=== PATIENT | female | born 1995 | race Native Hawaiian/Other Pacific Islander ===

== ENCOUNTER 2017-05-11 01:47 | Inpatient (IN) | payer MEDICAID ==
[2017-05-11] MEDS ORDERED: MAGNESIUM SULFATE 4GM/100ML 4 GM/100 ML BAG IV ONE ×2 (02:22→02:24)
[2017-05-11] MEDS ORDERED: LACTATED RINGERS 500 ML IV ONE (02:22)
[2017-05-11 02:50] LABS: Bilirubin,Urine NEG (Negative); Blood,Urine SM (Negative); Ketones,Urine NEG (Negative); Leukocyte Esterase,Urine NEG (Negative); Mucus,Urine FEW /HPF; Nitrite,Urine NEG (Negative); Protein,Urine <15 mg/dL mg/dL (Negative); Urobilinogen,Urine < 2.0 mg/dL (<2.0)
[2017-05-11] MEDS ORDERED: MAGNESIUM SULFATE 40GM/1000ML 40 GM/1,000 ML BAG IV SCH (03:00)
[2017-05-11] MEDS ORDERED: CELESTONE SOLUSPAN IM SCH (03:00)
[2017-05-11 03:23] LABS: Basophils % (Auto) 0.4 % (0.0-1.8); Eosinophils % (Auto) 0.8 % (0.0-4.3); Hematocrit 36.8 % (30.3-42.9); Hemoglobin 12.5 gm/dl (10.1-14.3); Mean Corpuscular HGB Conc 34 % (30-34); Mean Corpuscular Hemoglobin 32 pg (28-32); Mean Corpuscular Volume 93 fl (79-97); Platelet Count 164 K/mm3 (140-440); Red Blood Count 3.98 M/mm3 (3.65-5.03); Red Cell Distribution Width 13.1 % (13.2-15.2); White Blood Count 14.5 K/mm3 (4.5-11.0)
[2017-05-11] MEDS ORDERED: NARCAN 2 MG/2 ML IV PRN (03:53)
[2017-05-11] MEDS ORDERED: ePHEDrine SULFATE IV PRN ×2 (03:53→05:23)
--- NOTE | 2017-05-11 03:53 | Anesthesia Consultation ---
Anesthesia Consult and Med Hx Date of service: 05/11/17 - Airway Anesthetic Teeth Evaluation: Good ROM Head & Neck: Adequate Mental/Hyoid Distance: Adequate Mallampati Class: Class II Intubation Access Assessment: Good - Pulmonary Exam CTA: Yes - Cardiac Exam Cardiac Exam: No Murmur - Pre-Operative Health Status ASA Pre-Surgery Classification: ASA2 Proposed Anesthetic Plan: Epidural - Pulmonary Hx Asthma: No COPD: No Hx Pneumonia: No - Cardiovascular System Hx Hypertension: No - Central Nervous System Hx Seizures: No Hx Psychiatric Problems: No - Endocrine Hx Renal Disease: No Hx End Stage Renal Disease: No Hx Hypothyroidism: No Hx Hyperthyroidism: No - Hematic Hx Anemia: No Hx Sickle Cell Disease: No - Other Systems Hx Alcohol Use: No
[2017-05-11] MEDS ORDERED: fentaNYL-BUPIV 2 MCG/ML-0.125% 200 MCG/100 ML BAG EPIDURAL SCH (04:00)
[2017-05-11] MEDS ORDERED: POLYCILLIN/NS 2 GM/100 ML 2 GM/100 ML BAG IV ONE ×2 (04:21→05:23)
[2017-05-11] MEDS ORDERED: PITOCin/NS 20 UNIT/1000ML DRIP 20,000 MILLIUNITS/1,000 ML BAG IV ONE (04:35)
[2017-05-11] MEDS ORDERED: BRETHINE SUB-Q PRN (05:23)
[2017-05-11] MEDS ORDERED: BRETHINE IVP PRN (05:23)
[2017-05-11] MEDS ORDERED: STADOL IV PRN (05:23)
[2017-05-11] MEDS ORDERED: XYLOCAINE 2% INFILTRATI ONE ×2 (05:23→14:40)
[2017-05-11] MEDS ORDERED: SUBLIMAZE IV PRN (05:23)
[2017-05-11] MEDS ORDERED: MINERAL OIL PO PRN (05:23)
[2017-05-11] MEDS ORDERED: ZOFRAN IV PRN (05:23)
--- NOTE | 2017-05-11 05:31 | History and Physical Report ---
History of Present Illness Date of examination: 05/11/17 Date of admission: 05/11/17 02:28 Chief complaint: Labor History of present illness: Pt is a 21yo HF EDC 1017/17; EGA 30 3/7 weeks presents to L&D complaining of RUC's q 3-4 mins. [facility] however records are not available. Ob u/s done showed IUP @ 39 2/7 weeks; EFW 3741gms with ZOE 21.6 Past History Past Medical History: no pertinent history Past Surgical History: section Social history: no significant social history - Obstetrical History Expected Date of Delivery: 07/17/17 Actual Gestation: 30 Week(s) 3 Day(s) : 3 Medications and Allergies Allergies Allergy/AdvReac Type Severity Reaction Status Date / Time No Known Allergies Allergy Verified 08/26/15 20:30 Home Medications Medication Instructions Recorded Confirmed Last Taken Type Acetaminophen/Codeine [Tylenol #3] 1 tab PO Q6H PRN #10 tab 12/31/14 Unknown Rx Nitrofurantoin Grand/M-Cryst 100 mg PO Q12HR #14 capsule 12/31/14 Unknown Rx [Macrobid] Ondansetron [Zofran Odt] 4 mg PO Q6H #20 tab.rapdis 12/31/14 Unknown Rx Pnv95/Ferrous Fumarate/FA 1 each PO QDAY #30 tablet 12/31/14 Unknown Rx [ Vitamins] Docusate Sodium [Colace CAP] 100 mg PO BID #60 capsule 08/27/15 Unknown Rx Ibuprofen [Motrin 800 MG tab] 800 mg PO Q8HR PRN #90 tablet 08/27/15 Unknown Rx oxyCODONE /ACETAMINOPHEN [Percocet 1 tab PO Q6HR PRN #30 tablet 08/27/15 Unknown Rx 5/325 mg] Active Meds: Active Medications Betamethasone Acet/Betameth SodPhos (Celestone Soluspan) 12 mg IM Q24H DAYRON Stop: 05/12/17 03:01 Last Admin: 05/11/17 02:43 Dose: 12 mg Magnesium Sulfate (Magnesium Sulfate 40gm/1000ml) 40 gm in 1,000 mls @ 50 mls/ hr IV DIRECT DAYRON PRN Reason: 2 GM/HR Fentanyl/Bupivacaine/Sodium Chlor (Fentanyl-Bupiv 2 Mcg/Ml-0.125%) 200 mcg in 100 mls @ 12 mls/hr EPIDURAL TITR DAYRON PRN Reason: Protocol Multivitamins/Iron/Calcium ( Vitamin) 1 each PO QDAY DAYRON Review of Systems All systems: negative - Vital Signs Vital signs: Vital Signs Pulse BP 88 136/81 05/11/17 02:03 05/11/17 02:03 Temp Pulse Resp BP Pulse Ox 72 105/57 94 05/11/17 05:24 05/11/17 05:21 05/11/17 05:24 - Physical Exam Breasts: Positive: deferred Cardiovascular: Regular rate Abdomen: Positive: normal appearance Genitourinary (Female): Positive: normal external genitalia Extremities: Positive: normal - Obstetrical FHR: category 1 Uterine Contraction Monitor Mode: External Cervical Dilatation: 6 Cervical Effacement Percentage: 80 station: -2 Results Result Diagrams: 05/11/17 02:50 Abnormal lab results 05/11/17 Range/Units 02:50 WBC 14.5 H (4.5-11.0) K/mm3 RDW 13.1 L (13.2-15.2) % Grand # 0.9 H (0.0-0.8) K/mm3 Seg Neutrophils % 77.4 H (40.0-70.0) % Seg Neutrophils # 11.2 H (1.8-7.7) K/mm3 All other labs normal. Ultrasound: report reviewed
[2017-05-11] MEDS ORDERED: PITOCin/NS 30 UNIT/500ML 30 UNITS/500 ML BAG IV SCH (06:00)
[2017-05-11] MEDS ORDERED: PITOCin/NS 20 UNIT/1000ML DRIP 20 UNITS/1,000 ML BAG IV SCH (06:00)
[2017-05-11] MEDS ORDERED: LACTATED RINGERS 1,000 ML IV SCH (06:00)
--- NOTE | 2017-05-11 09:26 | Event Note ---
Date: 05/11/17 O: VE , intact, CAT I tracing A: Active labor at 39 weeks P: expect
--- NOTE | 2017-05-11 09:37 | Ultrasound Report ---
COMPLETE OB ULTRASOUND: Gestation: cardoso Position: Cephalic ZOE = 21.6 cm Placenta: Anterior Placental Grade: 2 Heart Rate: 147 BPM Cervical length: Not visualized cm (Normal > 3 cm) ANATOMY VISUALIZED: Stomach Kidneys Bladder Diaphragm Heart 3 Vessel Cord The following are not demonstrated due to maternal body habitus or lie: Cardiac chambers, cord insertion, neural anatomy, spine BPD: 9.63 cm = 39 w 2 d HC: 35.57 cm = 41 w 5 d AC: 36.09 cm = 40 w 0 d FL: 7.02 cm = 36 w 0 d HC/AC Ratio: 0.99 Cephalic Index: 79.2 Estimated Weight: 3741 grams LMP: 10/10/16 Clinical age = 30 w 3 d EDC: 07/17/17 US Gest. Age = 39 w 2 d EDC: 05/16/17
[2017-05-11] MEDS ORDERED: PRENATAL VITAMIN PO SCH (10:00)
[2017-05-11] MEDS: POLYCILLIN/NS 1 GM/50 ML 1 GM/50 ML BAG IV SCH ×2 (10:37→14:12)
[2017-05-11] MEDS ORDERED: PHENERGAN PO PRN (14:54)
[2017-05-11] MEDS ORDERED: BENADRYL PO PRN (14:54)
[2017-05-11] MEDS ORDERED: TYLENOL PO PRN (14:54)
[2017-05-11] MEDS ORDERED: SODIUM CHLORIDE FLUSH SYRINGE 10 ML IV SCH (15:00)
--- NOTE | 2017-05-11 15:02 | Procedure Note ---
OB Delivery Note - Delivery Date of Delivery: 05/11/17 Surgeon: MARTY PALMER Estimated blood loss: 200cc - Vaginal Delivery presentation: vertex Delivery position: OA Intrapartum events: none Delivery induction: none Delivery monitor: none Route of delivery: Delivery placenta: spontaneous Delivery cord: 3 umbilical vessels Episiotomy: none Delivery laceration: 1st degree (right labial) Delivery repair: vicryl Anesthesia: epidural Delivery comments: of a viable male 7# 3 oz at 1433 on 05/11/2017 over intact perineum. 8 /9. R labial laceration repaired with 3-0 vicryl under local anesthesia. Placenta delivered 3VCI. FF @ U-2, mother and baby doing well. - A at 1 minute: 8 at 5 minutes: 9 (7# 3oz) Infant Gender: Male
[2017-05-11] MEDS: MOTRIN PO SCH (17:36)
[2017-05-12] MEDS ORDERED: BOOSTRIX IM ONE (00:01)
[2017-05-12] MEDS: MOTRIN PO SCH ×5 (00:10→23:44)
[2017-05-12 06:32] LABS: Hematocrit 36.3 % (30.3-42.9); Hemoglobin 12.3 gm/dl (10.1-14.3)
--- NOTE | 2017-05-12 08:02 | Progress Note ---
Assessment and Plan day 1 S/P . P: Rx for heartburn. Rx iron supplements. Anticipate discharge tomorrowl Plan Depo Provera shot tomorrow before hospital discharge Subjective - Subjective Date of service: 05/12/17 Principal diagnosis: day 1 S/P Interval history: Doing well. and bottlefeeding. Pt. denies headache, cough, SOB, nausea, abdominal pain, leg pain, heavy vaginal bleeding, or symtoms of depression. Patient wants to use Depo Provera for control and states she would like to get the shot tomorrow before she leaves the hospital. Pt. requests medication for heartburn. Voiding without difficulty. Ambulating well. Tolerating a regular diet. Objective - Vital Signs Vital Signs: Vital Signs - 12hr 05/12/17 00:00 Temperature 98.6 F Pulse Rate 69 Respiratory 16 Rate Blood Pressure 135/71 - Exam Breasts: deferred Cardiovascular: Regular rate, No murmurs Lungs: Clear to auscultation Abdomen: Present: normal appearance. Absent: distention, tenderness, mass, inguinal adenopathy Uterus: Present: fundal height below umbilicus - Labs Labs: Abnormal Labs 05/11/17 02:50 WBC 14.5 H RDW 13.1 L [place] # 0.9 H Seg Neutrophils % 77.4 H Seg Neutrophils # 11.2 H Laboratory Results - last 24 hr 05/12/17 05:57 Hgb 12.3 Hct 36.3
[2017-05-12] MEDS: NORCO 5/325 PO PRN ×2 (09:32→20:18)
[2017-05-12] MEDS: LANSINOH TP PRN ×2 (09:35→13:08)
[2017-05-12] MEDS ORDERED: TUCKS PAD TP PRN (13:00)
[2017-05-12] MEDS: FEOSOL PO SCH ×2 (13:03→23:43)
[2017-05-12] MEDS: PEPCID PO SCH (13:03)
[2017-05-12] MEDS ORDERED: DERMOPLAST TP PRN (14:00)
[2017-05-13] MEDS: MOTRIN PO SCH ×3 (05:09→18:15)
[2017-05-13] MEDS: NORCO 5/325 PO PRN (08:19)
--- NOTE | 2017-05-13 11:57 | Progress Note ---
Assessment and Plan A: day 2 S/P P: Discharge patient to home today. [facility]. discharge instructions and warning signs discussed with patient. Subjective - Subjective Principal diagnosis: day 1 S/P Interval history: Doing well. and bottlefeeding. Pt. denies headache, cough, SOB, nausea, abdominal pain, leg pain, heavy vaginal bleeding, or symtoms of depression. Patient wants to use Depo Provera for control and states she would like to get the shot tomorrow before she leaves the hospital. Pt. requests medication for heartburn. Voiding without difficulty. Ambulating well. Tolerating a regular diet. Patient reports: appetite normal, voiding normally, pain well controlled, ambulating normally : doing well Objective - Vital Signs Latest vital signs: Vital Signs Temp Pulse Resp BP 05/13/17 08:15 98.1 F 68 18 118/61 05/13/17 00:00 98.6 F 69 16 124/56 05/12/17 20:18 18 05/12/17 16:30 97.7 F 62 18 129/64 Intake and Output 05/12/17 05/13/17 05/13/17 22:59 06:59 14:59 Intake Total 480 600 480 Balance 480 600 480 Intake: Oral 240 300 480 Intake, Free Water 240 300 Other: Total, Intake Amount 240 300 480 # Voids Void 1 2 1 - Exam Breasts: Present: deferred Cardiovascular: Present: Regular rate, No murmurs Lungs: Present: Clear to auscultation Abdomen: Present: normal appearance, soft, normal bowel sounds. Absent: distention, tenderness, guarding Uterus: Present: normal, firm, fundal height below umbilicus. Absent: tenderness Extremities: Present: normal. Absent: edema
--- NOTE | 2017-05-13 12:05 | Discharge Summary ---
Providers - Providers Date of Admission: 05/11/17 02:28 Date of discharge: 05/13/17 Attending physician: MOI THOMAS MD 05/11/17 05:26 Consult to Physician [CONS] Routine Consulting Provider: MIHAELA GALVEZ Reason For Exam: [address] consult to:: NICU Notified:: yes Phone number called:: [phone] Was contact made?: Yes Time called:: 05:28 Primary care physician: MOI THOMAS MD Hospitalization Reason for admission: active labor Delivery: Episiotomy: none Laceration: other (right labial laceration) Other procedures: none complications: none Discharge diagnosis: IUP at term delivered baby: male Pertinent studies: Labs Hospital course: Normal hospital course Condition at discharge: Good Disposition: DC-01 TO HOME OR SELFCARE - Discharge Diagnoses (1) Term delivered Status: Acute Plan - Provider Discharge Summary Activity: no sex for 6 weeks, no heavy lifting 4 weeks, no strenuous exercise Diet: routine Instructions: routine Additional instructions: [] Smoking cessation referral if applicable(refer to patient education folder for contact #) [] Refer to [facility] Booklet Call your doctor immediately for: * Fever > 100.5 * Heavy vaginal bleeding ( >1 pad per hour) * Severe persistent headache * Shortness of breath * Reddened, hot, painful area to leg or breast * Drainage or odor from incision. * - Follow up plan Follow up: MOI MENDOZA MD [Primary Care Provider] - 7 Days SIXTO LOZANO CNM [Advanced Practice Nurse] - 7 Days
[2017-05-13] MEDS: FEOSOL PO SCH (12:33)
[2017-05-13] MEDS: PEPCID PO SCH (12:39)
[2017-05-13] MEDS ORDERED: DEPO-PROVERA (CONTRACEPTION) IM ONE (18:00)
[2017-05-13 18:01] VITALS: BP 126/66
== END 2017-05-13 18:05 | disposition home or self-care (01) | DRG 775 ==
LOC: TRG 01:47 → LD 02:28 → OB 16:50
PROVIDERS: ADMIT Obstetrics & Gynecology; ATTEND Obstetrics & Gynecology
PROC: 10E0XZZ Delivery of Products of Conception, External Approach (ICD-10-PCS; principal; 2017-05-11)
PROC: 0HQ9XZZ Repair Perineum Skin, External Approach (ICD-10-PCS; 2017-05-11)
PROC: 3E0R3CZ (ICD-10-PCS; 2017-05-11)
PROC: 00HU33Z Insertion of Infusion Device into Spinal Canal, Percutaneous Approach (ICD-10-PCS; 2017-05-11)
DX: O70.0 First degree perineal laceration during delivery (principal); Z3A.39 39 weeks gestation of pregnancy; Z37.0 Single live birth
CPT/HCPCS: 36415; 76805; 81001; 82962; 85014; 85018; 85025; 86850; 86900; 86901; 90471; 90715; 99211; A6250; G0463; J0290; J0702; J1050; J2405; J2590; J3475; J7120

== ENCOUNTER 2018-12-11 22:51 | Inpatient (IN) | payer OTHER ==
[2018-12-11] MEDS ORDERED: LACTATED RINGERS 1,000 ML IV SCH (23:45)
--- NOTE | 2018-12-11 23:57 | Ultrasound Report ---
PROCEDURE: US OB LIMITED TECHNIQUE: Real-time limited sonographic examination was performed for evaluation of presentat ion for each fetus with image documentation (1 or more fetuses). HISTORY: presentation COMPARISONS: None . FINDINGS: A single intrauterine gestation is identified in cephalic presentation. heart rate is 156 bpm. IMPRESSION: Cephalic presentation This document is electronically signed by Jonathan Lopez MD., December 11 2018 11:54:57 PM ET
[2018-12-12 01:13] LABS: Amorphous Crystals,Urine Few; Bilirubin,Urine NEG (Negative); Blood,Urine NEG (Negative); Color,Urine Yellow (Yellow); Hyaline Casts,Urine 1 /LPF; Mucus,Urine FEW /HPF; Urobilinogen,Urine < 2.0 mg/dL (<2.0)
[2018-12-12 01:19] LABS: Amphetamine Screen,Urine PRESUMPTIVE NEGATIVE; Benzodiazepines Screen,Urine PRESUMPTIVE NEGATIVE; Cocaine Screen,Urine PRESUMPTIVE NEGATIVE; Methadone Screen,Urine PRESUMPTIVE NEGATIVE; Opiate Screen,Urine PRESUMPTIVE NEGATIVE
[2018-12-12 01:45] LABS: Cannabinoid Screen,Urine PRESUMPTIVE POSITIVE
[2018-12-12 01:47] LABS: Basophils # (Auto) 0.1 K/mm3 (0.0-0.1); Basophils % (Auto) 0.4 % (0.0-1.8); Eosinophils # (Auto) 0.2 K/mm3 (0.0-0.4); Eosinophils % (Auto) 1.2 % (0.0-4.3); Hematocrit 32.4 % (30.3-42.9); Hemoglobin 11.4 gm/dl (10.1-14.3); Lymphocytes # (Auto) 2.2 K/mm3 (1.2-5.4); Lymphocytes % (Auto) 16.7 % (13.4-35.0); Mean Corpuscular HGB Conc 35 % (30-34); Mean Corpuscular Volume 93 fl (79-97); Monocytes # (Auto) 0.8 K/mm3 (0.0-0.8); Monocytes % (Auto) 6.1 % (0.0-7.3); Platelet Count 174 K/mm3 (140-440); Red Blood Count 3.48 M/mm3 (3.65-5.03); Red Cell Distribution Width 12.9 % (13.2-15.2)
[2018-12-12] MEDS ORDERED: AMPICILLIN/NS 2 GM/100 ML 2 GM/100 ML BAG IV ONE (02:46)
[2018-12-12] MEDS ORDERED: SUBLIMAZE IV PRN (02:57)
[2018-12-12] MEDS ORDERED: PITOCin/NS 30 UNIT/500ML 30 UNITS/500 ML BAG IV SCH (04:00)
--- NOTE | 2018-12-12 05:07 | History and Physical Report ---
History of Present Illness Date of examination: 12/12/18 Date of admission: 12/11/18 23:46 Chief complaint: SROM History of present illness: Patient reports large gush of clear fluid from vagina at 2300 with continued leaking since that time. Past History Past Medical History: no pertinent history (denies) Past Surgical History: section (2014 Emergent for decreased FHT and "I pushed but he wouldn't come") MATERIAL SPECIALIST History: other (denies) Family/Genetic History: other (mgm DM, unknown cancer. pgm-cancer, unknown) Social history: no significant social history, single, lives with family (with FOC and children), other (Denies any tobacco, drug, or alcohol use. DWP +marijuana on UDS and she reports using "one time on 11/19". Pt reports recent incarceration, released 2 weeks ago, only care was from halfway. ) - Obstetrical History : 4 Para: 3 Hx # Term Pregnancies: 3 Number of Pregnancies: 0 Spontaneous Abortions: 0 Induced : 0 Number of Living Children: 3 Medications and Allergies Allergies Allergy/AdvReac Type Severity Reaction Status Date / Time No Known Allergies Allergy Verified 08/26/15 20:30 Home Medications Medication Instructions Recorded Confirmed Last Taken Type Acetaminophen/Codeine [Tylenol 1 tab PO Q6H PRN #10 tab 05/13/17 Unknown Rx /Codeine # 3 tab] Active Meds: Active Medications Fentanyl (Sublimaze) 100 mcg IV ONCE PRN PRN Reason: Labor Pain Lactated Ringer's (Lactated Ringers) 1,000 mls @ 125 mls/hr IV DIRECT DAYRON Last Admin: 12/12/18 00:34 Dose: 125 mls/hr Documented by: Oxytocin/Sodium Chloride (Pitocin/Ns 30 Unit/500ml) 30 units in 500 mls @ 0 mls/hr IV TITR DAYRON; Protocol Review of Systems All systems: negative (mild contractions and continued leaking of clear fluid from vagina) - Vital Signs Vital signs: Vital Signs Temp Pulse Resp BP Pulse Ox 97.4 F L 77 20 122/58 99 12/11/18 23:58 12/11/18 23:58 12/11/18 23:58 12/11/18 23:58 12/11/18 23:58 Temp Pulse Resp BP Pulse Ox 97.7 F 82 20 118/57 99 12/12/18 02:31 12/12/18 02:31 12/11/18 23:58 12/12/18 02:12 12/11/18 23:58 - Physical Exam Breasts: Positive: normal Cardiovascular: Regular rate, Normal S1, Normal S2 Lungs: Positive: Clear to auscultation Abdomen: Positive: normal appearance, soft, normal bowel sounds. Negative: distention, tenderness Genitourinary (Female): Positive: normal external genitalia Vulva: both: normal Vagina: Positive: normal moisture. Negative: discharge Cervix: Negative: lesion, discharge Uterus: Positive: normal size, normal contour Adnexa: both: normal Anus/Rectum: Positive: normal perianal skin, heme negative. Negative: rectal mass, hemorrhoids Extremities: Positive: normal Deep Tendon Reflex Grade: Normal +2 - Obstetrical FHR: auscultation normal Uterine Contraction Monitor Mode: External Uterine Contraction Frequency (min): irregular Uterine Contraction Intensity: Mild Results Result Diagrams: 12/12/18 01:06 Abnormal lab results 12/12/18 12/12/18 Range/Units 00:30 01:06 WBC 12.9 H (4.5-11.0) K/mm3 RBC 3.48 L (3.65-5.03) M/mm3 MCH 33 H (28-32) pg MCHC 35 H (30-34) % RDW 12.9 L (13.2-15.2) % Seg Neutrophils % 75.6 H (40.0-70.0) % Seg Neutrophils # 9.8 H (1.8-7.7) K/mm3 Urine WBC (Auto) 7.0 H (0.0-6.0) /HPF U Epithel Cells (Auto) 44.0 H (0-13.0) /HPF All other labs normal. Assessment and Plan 23 y.o. IUP at approx 37 weeks per patient's reported EDC presents to tr [facility] with c/o SROM, clear, at 2300 last night. She reports mild contractions since this time, denies any vaginal bleeding. Under buttocks chux saturated with clear fluid, no vb noted. Pt reports +FM. Irregular contractions noted on TOCO, palpating mild. Category 1 FHT tracing. Initially, patient reported hx of 2 , uncomplicated. IV abx for unknown GBS and IV fluids were initiated at this time in anticipation of vaginal delivery. Upon assessment by CNM, patient admits to prior emergent c/s in 2014 with 2nd d/t "heart rate was down while I was pushing and he wouldn't come". Patient reports successful with 3rd . DWP that our practice does not do and we will plan for a repeat c/s. Patient voices desire to again. Options for refusal of care/treatment from our practice and her attempting to contact a provider who will agree to do discussed with patient and she reports "no that's ok, I will have another c/s". Patient denies any other surgeries or medical history. Patient also denies any use of drugs, alcohol, or tobacco with this , but when reviewing +UDS for marijuana she reports using "only one time". DWP importance of her giving a complete and honest medical history so we can provide safe care for her and her baby. She verbalizes understanding. Full labs ordered, pending results. US pending for EDC confirmation and ZOE. Patient reports last PO intake of food and fluid was upon arrival to hospital this morning. Pt understands NPO at this time. Dr. Briggs aware of patient admission and assessment. Will update provider with US result.
--- NOTE | 2018-12-12 06:41 | Ultrasound Report ---
PROCEDURE: US OB BPP WO NON-STRESS TECHNIQUE: A limited OB sonogram was obtained for evaluation of the ZOE and biophysical profile. HISTORY: Previous C/Section- ZOE and BPP COMPARISONS: None FINDINGS: For breathing movements, a score of 2 out of 2 was obtained. For movements, a score of 2 out of 2 was obtained. For posture and tone, a score of 2 out of 2 was obtained. For amniotic fluid volume, a score of 2 out of 2 was obtained. The total biophysical profile score is 8 out of 8. The heart rate is 124 BPM. The ZOE is 10.4 c m which is normal. IMPRESSION: Biophysical profile score of 8 out of 8. ZOE is normal at 10.4 cm.. This document is electronically signed by Servando Aguillon MD., December 12 2018 06:39:14 AM ET
--- NOTE | 2018-12-12 06:46 | Ultrasound Report ---
PROCEDURE: US OB >= 14 WEEKS FETUS TECHNIQUE: A transabdominal OB sonogram was performed. HISTORY: Previous C/Section- ZOE and BPP COMPARISONS: None FINDINGS: The fetus is in cephalic presentation. The estimated sonographic age is 37 weeks 3 days based on sono graphic criteria. The heart rate is 124 BPM. The placenta is fundal in position and is grade 1. The ZOE is 10.4 cm which is normal. There are no gross anomalies involving the stomach, kidney s, bladder, diaphragm, four-chamber heart, three-vessel cord image and abdominal CORD insertion. The spine shows no anomalies. The choroid plexus and lateral ventricle appears normal. The estimated feta l weight is 3217 g. The measured indices are unremarkable for the cephalic index measuring 85.5 which is slightly elevated. IMPRESSION: Cephalic presentation, estimated gestational age 37 weeks 3 days. Estimated weight is 3217 g.. This document is electronically signed by Servando Aguillon MD., December 12 2018 06:43:43 AM ET
--- NOTE | 2018-12-12 07:14 | Anesthesia Consultation ---
Anesthesia Consult and Med Hx Date of service: 12/12/18 - Airway Anesthetic Teeth Evaluation: Good ROM Head & Neck: Adequate Mental/Hyoid Distance: Adequate Mallampati Class: Class III Intubation Access Assessment: Probably Good - Pulmonary Exam CTA: Yes - Cardiac Exam Cardiac Exam: RRR - Pre-Operative Health Status ASA Pre-Surgery Classification: ASA2 Proposed Anesthetic Plan: Spinal - Pulmonary Hx Asthma: No COPD: No Hx Pneumonia: No - Cardiovascular System Hx Hypertension: No - Central Nervous System Hx Seizures: No Hx Psychiatric Problems: No - Endocrine Hx Renal Disease: No Hx End Stage Renal Disease: No Hx Hypothyroidism: No Hx Hyperthyroidism: No - Hematic Hx Anemia: No Hx Sickle Cell Disease: No - Other Systems Hx Alcohol Use: No
[2018-12-12] MEDS ORDERED: PHENERGAN PR PRN (07:15)
[2018-12-12] MEDS ORDERED: PHENERGAN PO PRN (07:15)
[2018-12-12] MEDS ORDERED: ZOFRAN IV PRN (07:15)
[2018-12-12] MEDS ORDERED: NARCAN 0.4 MG/1 ML IV PRN ×2 (07:15→12:06)
--- NOTE | 2018-12-12 07:15 | Anesthesia Day of Surgery ---
Anesthesia Day of Surgery - Day of Surgery Patient Examined: Yes Patient H&P Reviewed: Yes Patient is NPO: Yes Beta Blockers: No Cardiac Clearance: No Pulmonary Clearance: No
--- NOTE | 2018-12-12 07:23 | Event Note ---
Date: 12/12/18 Spec exam done - Gross clear fluid noted. Will update Dr. Dr. Mazariegos and proceed with repeat c/s
[2018-12-12] MEDS ORDERED: BICITRA ONE (07:29)
[2018-12-12] MEDS ORDERED: REGLAN ONE (07:29)
[2018-12-12] MEDS ORDERED: PEPCID IV ONE (07:29)
[2018-12-12] MEDS ORDERED: ANCEF/STERILE WATER 2 GM/20 ML 2 GM/20 ML SYRINGE IV ONE (07:30)
[2018-12-12] MEDS ORDERED: PITOCin/NS 20 UNIT/1000ML DRIP 40,000 MILLIUNITS/2,000 ML BAG IV ONE (07:30)
[2018-12-12] MEDS ORDERED: SODIUM CHLORIDE FLUSH SYRINGE 10 ML IV NR ×2 (08:00→12:06)
[2018-12-12] MEDS ORDERED: ZOFRAN ONE (08:55)
[2018-12-12] MEDS ORDERED: SUBLIMAZE ONE (08:56)
[2018-12-12] MEDS ORDERED: ANCEF/STERILE WATER 2 GM/20 ML IV ONE (09:15)
[2018-12-12] MEDS ORDERED: ROBINUL ONE (09:20)
[2018-12-12] MEDS ORDERED: NACL 0.9% IR ONE (09:26)
[2018-12-12] MEDS ORDERED: WATER FOR IRRIG STERILE IR ONE (09:26)
[2018-12-12] MEDS ORDERED: NEO SYNEPHRINE/NS Syringe(OR USE) IV ONE (09:29)
[2018-12-12] MEDS ORDERED: BENADRYL ONE (10:08)
--- NOTE | 2018-12-12 10:34 | Operative Report ---
Operative Report Operative Report: Date of procedure: 12/12/2018 Pre-operative diagnosis: Intrauterine at 37 weeks with insufficient pr enatal care, premature rupture of membranes and previous section Post-operative diagnosis: Same Procedure name(s): Repeat low transverse section Surgeon: Roberto Mazariegos MD Bar Attendant: Tressa Winkler Anesthesia: Spinal EBL: 500 mL Complications: None Findings: Patient with adhesion of anterior wall and uterus. Normal uterus tubes and ovaries bilaterally. Male infant weighing 6 lbs. 7 oz. Apgars 8 at 1 minute and 5 minutes Specimen(s): None Indications: Had discussion with the patient Policy on vaginal after section. Patient agreed to proceed with repeat .Patient informed the risks of the surgery include bleeding possibly bleeding heavy enough to require blood transfusion, infection possible damage to bowel bladder ureter. All questions answered. Patient agrees to proceed Procedure: The patient was brought to the operating room. A spinal was placed without any complications. She was then placed in left lateral tilt. Prepped and draped in the usual sterile manner. After testing for adequate anesthesia level, a Pfannenstiel incision was made through her previous scar. This incision was taken down to the fascia. The fascia was then nicked in the midline. This incision was extended out laterally with Jo scissors. The fascia was then sharply and bluntly from the underlying rectus muscles. The rectus muscles were bluntly and sharply . The peritoneum was then entered with the take up operator's fingers. This incision was spread vertically with care not to damage the bladder below. The bladder flap was then formed sharply and bluntly with Metzenbaum scissors. The Bebeto self-retaining tractor was then placed without any difficulty. A transverse incision was made in lower uterine segment. This incision was extended laterally with the operators fingers. The amniotic sac was then entered bluntly with the take up operator's fingers. The was delivered from the vertex position. Bulb suction on the mother's abdomen. Cord was double clamped and cut. The infant was then passed to the nursery personnel who were in attendance. The above scores were given by the nursery personnel. The placenta was then bluntly removed. The uterus was then externalized and wiped clean the remaining products. The uterine incision was closed in layers. The first incision was closed in a locking manner using 0 Vicryl. This was followed by imbricating stitch also with 0 Vicryl. This closure was hemostatic. The bladder flap was copiously irrigated and found to be hemostatic. The pelvis was copiously irrigated and found to be hemostatic. The uterus was then placed back to the patient's abdomen. The retractors were removed. The rectus muscles were inspected and found to be hemostatic. The fascia was then closed in a running manner using 0 Vicryl. This incision was hemostatic irrigation Bovie. The skin was reapproximated with 4-0 Vicryl subcuticularly. The patient tolerated pro cedure well. Her urine was clear. The infant was admitted to the well baby nursery. The patient was accompanied to recovery room in good condition. Instrument count correct X 3.
[2018-12-12] MEDS ORDERED: PITOCin/NS 20 UNIT/1000ML DRIP 20 UNITS/1,000 ML BAG IV SCH (12:06)
[2018-12-12] MEDS ORDERED: D5LR 1,000 ML IV SCH (12:06)
[2018-12-12] MEDS ORDERED: ANCEF/NS 1 GM/50 ML 1 GM/50 ML BAG IV SCH (12:06)
[2018-12-12] MEDS ORDERED: TUCKS PAD TP PRN (12:06)
[2018-12-12] MEDS ORDERED: MILK OF MAGNESIA PO PRN (12:06)
[2018-12-12] MEDS ORDERED: MYLICON PO PRN (12:06)
[2018-12-12] MEDS ORDERED: NORCO 5/325 PO PRN (12:06)
[2018-12-12] MEDS ORDERED: LANSINOH TP PRN (12:06)
[2018-12-12] MEDS: TORADOL IV PRN ×2 (13:05→20:14)
[2018-12-12] MEDS: ANCEF/NS 1 GM/50 ML 1 GM/50 ML BAG IV SCH (17:10)
[2018-12-12] MEDS: NORCO 5/325 PO PRN (21:43)
[2018-12-12 23:16] LABS: Hematocrit 31.1 % (30.3-42.9)
[2018-12-13] MEDS: ANCEF/NS 1 GM/50 ML 1 GM/50 ML BAG IV SCH (01:24)
[2018-12-13] MEDS: TORADOL IV PRN (01:24)
[2018-12-13] MEDS: NORCO 5/325 PO PRN ×4 (03:28→20:56)
[2018-12-13] MEDS ORDERED: BOOSTRIX IM ONE (06:00)
--- NOTE | 2018-12-13 08:56 | Progress Note ---
Assessment and Plan POD 1. Patient reports back pain, requesting pain medication at this time, awaiting dose to be given by RN. Fundus firm, ML, bleeding is small. Dressing is in place over lower abdominal incision, C/D/I. Instructed patient to shower this morning and remove dressing while in shower. Encouraged IS and ambulation. Pt desires breast pump, reports infant is having difficulty latching and is supplementing with formula as needed. Encouraged continuing to attempt with infant to breast. VSSAF. Continue post op pathway. Subjective - Subjective Date of service: 12/13/18 Patient reports: appetite normal, voiding normally, flatus, ambulating normally, no pain well controlled (patient awaiting dose of pain medication from RN. ) Objective - Vital Signs Latest vital signs: Vital Signs Temp Pulse Resp BP BP Pulse Ox 12/13/18 00:00 98.4 F 66 18 118/55 98 12/12/18 17:08 98.7 F 69 20 101/55 96 12/12/18 11:47 97.7 F 59 L 20 121/70 99 12/12/18 11:12 97.8 F 72 17 120/68 99 12/12/18 10:57 71 16 121/73 98 12/12/18 10:42 71 17 116/71 99 12/12/18 10:37 71 16 116/70 98 12/12/18 10:32 71 15 120/71 97 12/12/18 10:27 70 16 118/73 98 12/12/18 10:22 71 17 116/70 99 12/12/18 10:17 68 16 118/68 99 12/12/18 10:12 97.7 F 67 16 117/62 99 Intake and Output 12/12/18 12/13/18 12/13/18 23:59 07:59 15:59 Intake Total 170 Output Total 1000 Balance -830 Intake: IV 50 ANCEF/NS 1 GM/50 ML 1 gm 50 In 50 ml @ 100 mls/hr IV Q8H [facility] Rx#:[id number] Oral 120 Output: Urine 1000 Indwelling Catheter 1000 Other: Total, Intake Amount 120 Total, Output Amount 1000 - Exam Cardiovascular: Present: Regular rate, Normal S1, Normal S2 Lungs: Present: Clear to auscultation Abdomen: Present: normal appearance, soft Uterus: Present: normal, firm Extremities: Present: normal Incision: Present: normal, dry, intact
[2018-12-13] MEDS: PRENATAL VITAMIN PO SCH (09:08)
[2018-12-13] MEDS: FEOSOL PO SCH (09:08)
[2018-12-13] MEDS: IBUPROFEN PO PRN ×3 (09:09→20:57)
[2018-12-13] MEDS ORDERED: AFLURIA QUAD 2018-2019 SYRINGE IM ONE (12:00)
[2018-12-13] MEDS ORDERED: hyperHEP B S/D IM ONE (14:39)
[2018-12-14] MEDS: NORCO 5/325 PO PRN ×3 (02:34→18:28)
[2018-12-14] MEDS: IBUPROFEN PO PRN ×4 (02:34→23:50)
--- NOTE | 2018-12-14 10:52 | Progress Note ---
Assessment and Plan POD 2 s/p repeat c/s. Patient continues to report mid-back pain, requesting pain medication at this time. Reports that EMS "dropped" her stretcher from the ambulance during transport to hospital. Assessment of area where patient reports pain is normal, no abrasion, bruising, no abnormalities noted. Patient describes pain as a dull ache. Encouraged to continue ibuprofen for pain to see if this helps, per MAR she has only had one dose. Patient denies any incision pain or cramping. Fundus firm, ML, U/2, bleeding is small. Incision is healing well, well-approximated, no drainage noted, no signs of infection. Encouraged continued use of IS and ambulation. Pt is pumping and breast feeding, denies any issues. VSSAF. Continue post op pathway. Plan for discharge tomorrow. Subjective - Subjective Date of service: 12/14/18 Interval history: Patient reports large gush of clear fluid from vagina at 2300 with continued leaking since that time. Patient reports: appetite normal, voiding normally, pain well controlled, flatus, ambulating normally : doing well Objective - Vital Signs Latest vital signs: Vital Signs Temp Pulse Resp BP BP Pulse Ox 12/14/18 07:15 98.1 F 56 L 20 116/47 96 12/14/18 07:14 61 107/47 96 12/14/18 01:15 98.0 F 58 L 18 100/61 12/13/18 18:24 98.2 F 67 20 115/40 96 Intake and Output 12/13/18 12/14/18 12/14/18 23:59 07:59 15:59 Intake Total 1320 600 360 Balance 1320 600 360 Intake: Oral 840 360 Intake, Free Water 480 600 Other: Total, Intake Amount 840 360 # Voids Indwelling Catheter 2 Void 1 - Exam Breasts: Present: normal Cardiovascular: Present: Regular rate, Normal S1, Normal S2 Lungs: Present: Clear to auscultation Abdomen: Present: normal appearance, soft Vulva: both: normal Uterus: Present: normal, firm Extremities: Present: normal Incision: Present: normal, dry, intact
[2018-12-14] MEDS: FEOSOL PO SCH (12:43)
[2018-12-14] MEDS: PRENATAL VITAMIN PO SCH (12:43)
[2018-12-15] MEDS: NORCO 5/325 PO PRN (05:21)
[2018-12-15] MEDS ORDERED: DEPO-PROVERA (CONTRACEPTION) IM NR (07:53)
--- NOTE | 2018-12-15 08:09 | Discharge Summary ---
Providers - Providers Date of Admission: 12/11/18 23:46 Date of discharge: 12/15/18 Attending physician: CHARLES GONZALEZ 12/12/18 12:06 Consult to Platform Material Handler Manager [CONS] Routine Reason For Exam: 12/12/18 19:27 Consult to Case Management [CONS] Routine Services Needed at Discharge: Kennel Technician Notified:: no Phone number called:: [phone] Was contact made?: No Time called:: 19:27 Primary care physician: CHARLES GONZALEZ Hospitalization Reason for admission: labor Condition: Good Pertinent studies: post delivery H&H .1 Procedures: repeat c/s Hospital course: uncomplicated c/s and course Disposition: - TO HOME OR SELFCARE Core Measure Documentation - Palliative Care Palliative Care/ Comfort Measures: Not Applicable - Core Measures Any of the following diagnoses?: none Exam - Constitutional Vitals: Temp Pulse Resp BP Pulse Ox 98.2 F 64 18 115/53 95 12/15/18 01:33 12/15/18 01:33 12/15/18 01:33 12/15/18 01:33 12/14/18 17:08 General appearance: Present: no acute distress, well-nourished - EENT Eyes: Present: PERRL ENT: hearing intact, clear oral mucosa - Neck Neck: Present: supple, normal ROM - Respiratory Respiratory effort: normal Respiratory: bilateral: CTA - Cardiovascular Heart Sounds: Present: S1 & S2. Absent: rub, click - Extremities Extremities: pulses symmetrical, No edema Peripheral Pulses: within normal limits - Abdominal General gastrointestinal: Present: soft, non-tender, non-distended, normal bowel sounds Female genitourinary: Present: normal - Integumentary Integumentary: Present: clear, warm, dry - Musculoskeletal Musculoskeletal: gait normal, strength equal bilaterally - Psychiatric Psychiatric: appropriate mood/affect, intact judgment & insight - Neurologic Neurologic: CNII-XII intact, moves all extremities - Additional findings Additional findings: Fundus firm, ML, U/2, bleeding scant. Incision is well approximated, healing well, no drainage or s/s of infection. Patient reports feeling well, no complaints. Desires depo for contraception, order placed to be given prior to discharge today. Pt reports pumping and is going well, no breast complaints. F/u in office in 1 week for incision check. Plan Activity: no restrictions, advance as tolerated Diet: regular Wound: open to air, keep clean and dry Follow up with: CHARLES GONZALEZ MD [Primary Care Provider] - 7 Days (Congratulations! Please call [phone] to schedule your appointment in 1 week for incision check. Please schedule your son's circumcision appointment in 1 week. Bring EMLA cream prescription with you to this appointment and await instructions for further use in the office. Please call with any questions or concerns. ) Prescriptions: Lidocain2.5%/Prilocai2.5% [Emla] 5 gm TP ONCE #1 tube Ferrous Sulfate [Feosol 325 MG tab] 325 mg PO BID #60 tablet Ibuprofen [Motrin 800 MG tab] 800 mg PO Q6H PRN #30 tablet PRN Reason: Pain oxyCODONE /ACETAMINOPHEN [Percocet 5/325 mg] 1 - 2 tab PO Q4H PRN #30 tablet PRN Reason: Pain, Moderate
[2018-12-15] MEDS: IBUPROFEN PO PRN (09:47)
[2018-12-15] MEDS: PRENATAL VITAMIN PO SCH (09:48)
[2018-12-15] MEDS: FEOSOL PO SCH (09:48)
[2018-12-15 15:25] VITALS: BP 130/58
--- NOTE | 2018-12-19 15:24 | Query-Anemia ---
Pablito Mcpherson [place] Date:____12/19/18 Traffic Engineering Technician/CDS: Ab/Avis Phone#:____[phone] Exercise your independent professional judgment when responding to this query. Questions asked do not imply a particular answer is desired or expected. We greatly appreciate your clarification on this issue. Clinical Documentation States: 23 y.o. IUP at approx 37 weeks per patient's reported EDC presents to triage with c/o SROM. Operative Report: Date of procedure: 12/12/2018 Pre-operative diagnosis: Intrauterine at 37 weeks with insufficient care, premature rupture of membranes and previous section Post-operative diagnosis: Same Procedure name(s): Repeat low transverse section EBL: 500 mL Complications: None Findings: Patient with adhesion of anterior wall and uterus. Normal uterus tubes and ovaries bilaterally. Male infant weighing 6 lbs. 7 oz. Apgars 8 at 1 minute and 5 minutes Clinical Findings Show: 12/12/18(1:06) 12/12/18(22:32) Hgb 11.4 11.0 Hct 32.4 31.1 Etiology: [ ] Anemia due to acute blood loss [ ] Anemia due to chronic blood loss [ ] Anemia secondary to ESRD [ ] Anemia secondary to neoplastic disease [ ] Iron deficiency anemia due to malabsorption [ ] GI Bleed from: [ ] Anemia of chronic disease ,Other: [ ] Precipitous Drop in Hemoglobin [ ] Precipitous Drop in Hematocrit [ ] Other: [ ] Unable to determine [ X] Comment/Explanation:___Dr. Mazariegos performed her surgery Present on Admission: [ ] Yes (Y) [ ] Clinically undeterminable (W) [ ] No (N) Please also document response in your Progress Notes and/or Discharge Summary and indicate if the condition was present on admission. SUSAN
== END 2018-12-15 16:00 | disposition home or self-care (01) | DRG 765 ==
LOC: TRG 22:51 → LD 23:46 → OB 12-12 11:50
PROVIDERS: ADMIT Obstetrics & Gynecology; ATTEND Obstetrics & Gynecology
PROC: 10D00Z1 Extraction of Products of Conception, Low, Open Approach (ICD-10-PCS; principal; 2018-12-12)
DX: O42.92 Full-term premature rupture of membranes, unspecified as to length of time between rupture and onset of labor (principal); R71.0 Precipitous drop in hematocrit; O34.211 Maternal care for low transverse scar from previous cesarean delivery; Z3A.37 37 weeks gestation of pregnancy; Z37.0 Single live birth; Z83.3 Family history of diabetes mellitus; Z79.899 Other long term (current) drug therapy
CPT/HCPCS: 36415; 76805; 76815; 76819; 80307; 81001; 85014; 85018; 85025; 85660; 86592; 86706; 86762; 86850; 86900; 86901; 87806; 90471; 90686; 90715; G0378; A6250; J0290; J0690; J1050; J1200; J1885; J2370; J2405; J2590; J2765; J3010; J7120

== ENCOUNTER 2020-08-30 10:24 | Emergency (ER) | payer SELFPAY ==
--- NOTE | 2020-08-30 13:45 | Event Note ---
ED Screening Note ED Screening Note: yesterday began having n/v/d states having migraine headache +chills/sweats no fever no sick contacts no recent travel no recent abx states she ate [employer] last PMHx none no allergies to meds LNMP: currently on cycle This initial assessment/diagnostic orders/clinical plan/treatment(s) is/are subject to change based on patients health status, clinical progression and re- assessment by fellow clinical providers in the ED. Further treatment and workup at subsequent clinical providers discretion. Patient/guardian urged not to elope from the ED as their condition may be serious if not clinically assessed and managed. Initial orders include: labs, UA
[2020-08-30 15:04] LABS: Bacteria,Urine 4+ /HPF (Negative); Bilirubin,Urine NEG (Negative); Blood,Urine LG (Negative); Color,Urine Amber (Yellow); Mucus,Urine 3+ /HPF; Urobilinogen,Urine < 2.0 mg/dL (<2.0)
[2020-08-30 15:05] LABS: RBC,Urine > 182.0 /HPF (0.0-6.0)
[2020-08-30 15:56] LABS: Basophils % (Auto) 0.5 % (0.0-1.8); Eosinophils % (Auto) 0.8 % (0.0-4.3); Hematocrit 43.8 % (30.3-42.9); Hemoglobin 15.2 gm/dl (10.1-14.3); Lymphocytes # (Auto) 1.7 K/mm3 (1.2-5.4); Mean Corpuscular HGB Conc 35 % (30-34); Mean Corpuscular Volume 91 fl (79-97); Monocytes # (Auto) 0.5 K/mm3 (0.0-0.8); Monocytes % (Auto) 13.7 % (0.0-7.3); Platelet Count 162 K/mm3 (140-440); Red Cell Distribution Width 12.7 % (13.2-15.2)
[2020-08-30 16:20] LABS: Alanine Aminotransferase 21 units/L (7-56); Albumin 4.5 g/dL (3.9-5); BUN/Creatinine Ratio 14; Blood Urea Nitrogen 11 mg/dL (7-17); Calcium 9.6 mg/dL (8.4-10.2); Hemolysis Index 3
[2020-08-30] MEDS ORDERED: ONDANSETRON 4 MG ODT TAB PO ONE (17:12)
[2020-08-30] MEDS ORDERED: BUTALB/ACETAMINOPHEN/CAFFEINE TAB PO ONE (17:12)
--- NOTE | 2020-08-30 17:14 | Emergency Department Report ---
ED N/V/D HPI - General Chief complaint: Nausea/Vomiting/Diarrhea Stated complaint: VOMIT/SINCE YESTERDAY Time Seen by Provider: 08/30/20 13:43 Source: patient Mode of arrival: Ambulatory Limitations: No Limitations - History of Present Illness Initial comments: pt is a 25 yo female who presents to the ED stating yesterday began having n/v/d states having migraine headache +chills/sweats no fever no sick contacts no recent travel no recent abx states she ate [employer] last She denies any urinary symptoms, hematochezia, hematemesis, melena, abdominal p ain PMHx none no allergies to meds LNMP: currently on cycle - Related Data Previous Rx's Medication Instructions Recorded Last Taken Type Acetaminophen/Codeine [Tylenol 1 tab PO Q6H PRN #10 tab 05/13/17 Unknown Rx /Codeine # 3 tab] Ferrous Sulfate [Feosol 325 MG tab] 325 mg PO BID #60 tablet 12/12/18 Unknown Rx Ibuprofen [Motrin 800 MG tab] 800 mg PO Q6H PRN #30 tablet 12/12/18 Unknown Rx Lidocain2.5%/Prilocai2.5% [Emla] 5 gm TP ONCE #1 tube 12/12/18 Unknown Rx oxyCODONE /ACETAMINOPHEN [Percocet 1 - 2 tab PO Q4H PRN #30 tablet 12/12/18 Unknown Rx 5/325 mg] Butalb/Acetaminophen/Caffeine 1 cap PO Q8HR PRN #10 cap 08/30/20 Unknown Rx [Fioricet 50-300-40 mg CAP] Ondansetron [Zofran Odt] 4 mg PO Q8HR PRN #10 tab.rapdis 08/30/20 Unknown Rx cephALEXin [Keflex] 500 mg PO BID 7 Days #14 cap 08/30/20 Unknown Rx Allergies Allergy/AdvReac Type Severity Reaction Status Date / Time No Known Allergies Allergy Verified 08/26/15 20:30 ED Review of Systems ROS: Stated complaint: VOMIT/SINCE YESTERDAY Other details as noted in HPI Comment: All other systems reviewed and negative ED Past Medical Hx - Past Medical History Previous Medical History?: No Hx Hypertension: No Hx Congestive Heart Failure: No Hx Diabetes: No Hx Deep Vein Thrombosis: No Hx Renal Disease: No Hx Sickle Cell Disease: No Hx Seizures: No Hx Asthma: No Hx COPD: No Hx HIV: No - Surgical History Past Surgical History?: No Additional Surgical History: C section - Social History Smoking Status: Former Smoker - Medications Home Medications: Home Medications Medication Instructions Recorded Confirmed Last Taken Type Acetaminophen/Codeine [Tylenol 1 tab PO Q6H PRN #10 tab 05/13/17 12/12/18 Unknown Rx /Codeine # 3 tab] Ferrous Sulfate [Feosol 325 MG tab] 325 mg PO BID #60 tablet 12/12/18 Unknown Rx Ibuprofen [Motrin 800 MG tab] 800 mg PO Q6H PRN #30 tablet 12/12/18 Unknown Rx Lidocain2.5%/Prilocai2.5% [Emla] 5 gm TP ONCE #1 tube 12/12/18 Unknown Rx oxyCODONE /ACETAMINOPHEN [Percocet 1 - 2 tab PO Q4H PRN #30 tablet 12/12/18 Unknown Rx 5/325 mg] Butalb/Acetaminophen/Caffeine 1 cap PO Q8HR PRN #10 cap 08/30/20 Unknown Rx [Fioricet 50-300-40 mg CAP] Ondansetron [Zofran Odt] 4 mg PO Q8HR PRN #10 tab.rapdis 08/30/20 Unknown Rx cephALEXin [Keflex] 500 mg PO BID 7 Days #14 cap 08/30/20 Unknown Rx ED Physical Exam - General Limitations: No Limitations General appearance: alert, in no apparent distress - Head Head exam: Present: atraumatic, normocephalic - Eye Eye exam: Present: normal appearance - ENT ENT exam: Present: mucous membranes moist - Respiratory Respiratory exam: Present: normal lung sounds bilaterally. Absent: respiratory distress, wheezes, rales, rhonchi, stridor, chest wall tenderness, accessory muscle use, decreased breath sounds, prolonged expiratory - Cardiovascular Cardiovascular Exam: Present: regular rate, normal rhythm, normal heart sounds. Absent: systolic murmur, diastolic murmur, rubs, gallop - GI/Abdominal GI/Abdominal exam: Present: soft, normal bowel sounds. Absent: distended, tenderness, guarding, rebound, rigid - Neurological Exam Neurological exam: Present: alert, oriented X3, CN II-XII intact, normal gait. Absent: motor sensory deficit - Psychiatric Psychiatric exam: Present: normal affect, normal mood - Skin Skin exam: Present: warm, dry, intact ED Course Vital Signs 08/30/20 08/30/20 12:12 17:29 Temperature 98.2 F Pulse Rate 80 98 H Respiratory 20 19 Rate Blood Pressure 119/92 125/89 [Right] O2 Sat by Pulse 98 98 Oximetry ED Medical Decision Making - Lab Data Result diagrams: 08/30/20 15:34 08/30/20 15:34 Lab Results 08/30/20 08/30/20 08/30/20 Range/Units 14:30 15:34 15:34 WBC 3.6 L (4.5-11.0) K/mm3 RBC 4.80 (3.65-5.03) M/mm3 Hgb 15.2 H (10.1-14.3) gm/dl Hct 43.8 H (30.3-42.9) % MCV 91 (79-97) fl MCH 32 (28-32) pg MCHC 35 H (30-34) % RDW 12.7 L (13.2-15.2) % Plt Count 162 (140-440) K/mm3 Lymph % (Auto) 46.0 H (13.4-35.0) % [place] % (Auto) 13.7 H (0.0-7.3) % Eos % (Auto) 0.8 (0.0-4.3) % Baso % (Auto) 0.5 (0.0-1.8) % Lymph # (Auto) 1.7 (1.2-5.4) K/mm3 [place] # (Auto) 0.5 (0.0-0.8) K/mm3 Eos # (Auto) 0.0 (0.0-0.4) K/mm3 Baso # (Auto) 0.0 (0.0-0.1) K/mm3 Seg Neutrophils % 39.0 L (40.0-70.0) % Seg Neutrophils # 1.4 L (1.8-7.7) K/mm3 Sodium 137 (137-145) mmol/L Potassium 3.8 (3.6-5.0) mmol/L Chloride 101.5 (98-107) mmol/L Carbon Dioxide 27 (22-30) mmol/L Anion Gap 12 mmol/L BUN 11 (7-17) mg/dL Creatinine 0.8 (0.6-1.2) mg/dL Estimated GFR > 60 ml/min BUN/Creatinine Ratio 14 % Glucose 90 (65-100) mg/dL Calcium 9.6 (8.4-10.2) mg/dL Total Bilirubin 0.30 (0.1-1.2) mg/dL AST 28 (5-40) units/L ALT 21 (7-56) units/L Alkaline Phosphatase 64 (35-129) units/L Total Protein 7.5 (6.3-8.2) g/dL Albumin 4.5 (3.9-5) g/dL Albumin/Globulin Ratio 1.5 % Lipase 21 (13-60) units/L HCG, Qual (Negative) Urine Color Noa (Yellow) Urine Turbidity Slightly-cloudy (Clear) Urine pH 6.0 (5.0-7.0) Ur Specific [place] 1.025 (1.003-1.030) Urine Protein 100 mg/dl (Negative) mg/dL Urine Glucose (UA) Neg (Negative) mg/dL Urine Ketones Neg (Negative) mg/dL Urine Blood Lg (Negative) Urine Nitrite Pos (Negative) Urine Bilirubin Neg (Negative) Urine Urobilinogen < 2.0 (<2.0) mg/dL Ur Leukocyte Esterase Tr (Negative) Urine WBC (Auto) 30.0 H (0.0-6.0) /HPF Urine RBC (Auto) > 182.0 (0.0-6.0) /HPF U Epithel Cells (Auto) 12.0 (0-13.0) /HPF Urine Bacteria (Auto) 4+ (Negative) /HPF Urine Mucus 3+ /HPF 08/30/20 Range/Units 15:34 WBC (4.5-11.0) K/mm3 RBC (3.65-5.03) M/mm3 Hgb (10.1-14.3) gm/dl Hct (30.3-42.9) % MCV (79-97) fl MCH (28-32) pg MCHC (30-34) % RDW (13.2-15.2) % Plt Count (140-440) K/mm3 Lymph % (Auto) (13.4-35.0) % [place] % (Auto) (0.0-7.3) % Eos % (Auto) (0.0-4.3) % Baso % (Auto) (0.0-1.8) % Lymph # (Auto) (1.2-5.4) K/mm3 [place] # (Auto) (0.0-0.8) K/mm3 Eos # (Auto) (0.0-0.4) K/mm3 Baso # (Auto) (0.0-0.1) K/mm3 Seg Neutrophils % (40.0-70.0) % Seg Neutrophils # (1.8-7.7) K/mm3 Sodium (137-145) mmol/L Potassium (3.6-5.0) mmol/L Chloride (98-107) mmol/L Carbon Dioxide (22-30) mmol/L Anion Gap mmol/L BUN (7-17) mg/dL Creatinine (0.6-1.2) mg/dL Estimated GFR ml/min BUN/Creatinine Ratio % Glucose (65-100) mg/dL Calcium (8.4-10.2) mg/dL Total Bilirubin (0.1-1.2) mg/dL AST (5-40) units/L ALT (7-56) units/L Alkaline Phosphatase (35-129) units/L Total Protein (6.3-8.2) g/dL Albumin (3.9-5) g/dL Albumin/Globulin Ratio % Lipase (13-60) units/L HCG, Qual Negative (Negative) Urine Color (Yellow) Urine Turbidity (Clear) Urine pH (5.0-7.0) Ur Specific [place] (1.003-1.030) Urine Protein (Negative) mg/dL Urine Glucose (UA) (Negative) mg/dL Urine Ketones (Negative) mg/dL Urine Blood (Negative) Urine Nitrite (Negative) Urine Bilirubin (Negative) Urine Urobilinogen (<2.0) mg/dL Ur Leukocyte Esterase (Negative) Urine WBC (Auto) (0.0-6.0) /HPF Urine RBC (Auto) (0.0-6.0) /HPF U Epithel Cells (Auto) (0-13.0) /HPF Urine Bacteria (Auto) (Negative) /HPF Urine Mucus /HPF Lab Results 08/30/20 08/30/20 08/30/20 Range/Units 14:30 15:34 15:34 WBC 3.6 L (4.5-11.0) K/mm3 RBC 4.80 (3.65-5.03) M/mm3 Hgb 15.2 H (10.1-14.3) gm/dl Hct 43.8 H (30.3-42.9) % MCV 91 (79-97) fl MCH 32 (28-32) pg MCHC 35 H (30-34) % RDW 12.7 L (13.2-15.2) % Plt Count 162 (140-440) K/mm3 Lymph % (Auto) 46.0 H (13.4-35.0) % [place] % (Auto) 13.7 H (0.0-7.3) % Eos % (Auto) 0.8 (0.0-4.3) % Baso % (Auto) 0.5 (0.0-1.8) % Lymph # (Auto) 1.7 (1.2-5.4) K/mm3 [place] # (Auto) 0.5 (0.0-0.8) K/mm3 Eos # (Auto) 0.0 (0.0-0.4) K/mm3 Baso # (Auto) 0.0 (0.0-0.1) K/mm3 Seg Neutrophils % 39.0 L (40.0-70.0) % Seg Neutrophils # 1.4 L (1.8-7.7) K/mm3 Sodium 137 (137-145) mmol/L Potassium 3.8 (3.6-5.0) mmol/L Chloride 101.5 (98-107) mmol/L Carbon Dioxide 27 (22-30) mmol/L Anion Gap 12 mmol/L BUN 11 (7-17) mg/dL Creatinine 0.8 (0.6-1.2) mg/dL Estimated GFR > 60 ml/min BUN/Creatinine Ratio 14 % Glucose 90 (65-100) mg/dL Calcium 9.6 (8.4-10.2) mg/dL Total Bilirubin 0.30 (0.1-1.2) mg/dL AST 28 (5-40) units/L ALT 21 (7-56) units/L Alkaline Phosphatase 64 (35-129) units/L Total Protein 7.5 (6.3-8.2) g/dL Albumin 4.5 (3.9-5) g/dL Albumin/Globulin Ratio 1.5 % Lipase 21 (13-60) units/L HCG, Qual (Negative) Urine Color Noa (Yellow) Urine Turbidity Slightly-cloudy (Clear) Urine pH 6.0 (5.0-7.0) Ur Specific [place] 1.025 (1.003-1.030) Urine Protein 100 mg/dl (Negative) mg/dL Urine Glucose (UA) Neg (Negative) mg/dL Urine Ketones Neg (Negative) mg/dL Urine Blood Lg (Negative) Urine Nitrite Pos (Negative) Urine Bilirubin Neg (Negative) Urine Urobilinogen < 2.0 (<2.0) mg/dL Ur Leukocyte Esterase Tr (Negative) Urine WBC (Auto) 30.0 H (0.0-6.0) /HPF Urine RBC (Auto) > 182.0 (0.0-6.0) /HPF U Epithel Cells (Auto) 12.0 (0-13.0) /HPF Urine Bacteria (Auto) 4+ (Negative) /HPF Urine Mucus 3+ /HPF //20 Range/Units 15:34 WBC (4.5-11.0) K/mm3 RBC (3.65-5.03) M/mm3 Hgb (10.1-14.3) gm/dl Hct (30.3-42.9) % MCV (79-97) fl MCH (28-32) pg MCHC (30-34) % RDW (13.2-15.2) % Plt Count (140-440) K/mm3 Lymph % (Auto) (13.4-35.0) % [place] % (Auto) (0.0-7.3) % Eos % (Auto) (0.0-4.3) % Baso % (Auto) (0.0-1.8) % Lymph # (Auto) (1.2-5.4) K/mm3 [place] # (Auto) (0.0-0.8) K/mm3 Eos # (Auto) (0.0-0.4) K/mm3 Baso # (Auto) (0.0-0.1) K/mm3 Seg Neutrophils % (40.0-70.0) % Seg Neutrophils # (1.8-7.7) K/mm3 Sodium (137-145) mmol/L Potassium (3.6-5.0) mmol/L Chloride (98-107) mmol/L Carbon Dioxide (22-30) mmol/L Anion Gap mmol/L BUN (7-17) mg/dL Creatinine (0.6-1.2) mg/dL Estimated GFR ml/min BUN/Creatinine Ratio % Glucose (65-100) mg/dL Calcium (8.4-10.2) mg/dL Total Bilirubin (0.1-1.2) mg/dL AST (5-40) units/L ALT (7-56) units/L Alkaline Phosphatase (35-129) units/L Total Protein (6.3-8.2) g/dL Albumin (3.9-5) g/dL Albumin/Globulin Ratio % Lipase (13-60) units/L HCG, Qual Negative (Negative) Urine Color (Yellow) Urine Turbidity (Clear) Urine pH (5.0-7.0) Ur Specific [place] (1.003-1.030) Urine Protein (Negative) mg/dL Urine Glucose (UA) (Negative) mg/dL Urine Ketones (Negative) mg/dL Urine Blood (Negative) Urine Nitrite (Negative) Urine Bilirubin (Negative) Urine Urobilinogen (<2.0) mg/dL Ur Leukocyte Esterase (Negative) Urine WBC (Auto) (0.0-6.0) /HPF Urine RBC (Auto) (0.0-6.0) /HPF U Epithel Cells (Auto) (0-13.0) /HPF Urine Bacteria (Auto) (Negative) /HPF Urine Mucus /HPF - Medical Decision Making pt is a 25 yo female who presents to the ED stating yesterday began having n/v/d states having migraine headache +chills/sweats no fever no sick contacts no recent travel no recent abx states she ate [employer] last She denies any urinary symptoms, hematochezia, hematemesis, melena, abdominal pain PMHx none no allergies to meds LNMP: currently on cycle Vitals are normal. No abdominal tenderness on exam, no guarding, no rebound, no rigidity, normal bowel sounds, no peritoneal signs. Labs are stable. UA shows evidence of red blood cells from menstrual cycle, there were also some white blood cells and leukocyte esterase, will cover patient for UTI. Patient given Zofran and Fioricet while in the emergency department her symptoms improved and she was feeling much better and ready go home. Symptoms are likely related to a viral gastroenteritis. She has no leukocytosis, no fever, no abdominal tenderness on exam. She is able to tolerate p.o. intake without difficulty. Patient is presenting with the symptoms during COVID-19 pandemic, discussed COVID-19 with patient, discussed strict return precautions, discussed outpatient testing, discussed self quarantine. Patient given prescription for Fioricet, Zofran, Keflex. Advised patient Please take medication as prescribed. Increase your fluid intake over the next several days. Eat a bland liquid diet and slowly advance your diet as tolerated. May take Tylenol as needed for fever or body aches.Follow-up with a primary care doctor for reexamination. Return to emergency room immediately for any new or worsening symptoms including but not limited to difficulty breathing, shortness of breath, severe chest pain, unable to tolerate by mouth intake, etc. Please self quarantine for 10 days from the onset of your symptoms. Please do not go out in public. If you are around others at home please wear a mask. If you need to cough or sneeze please do so in a napkin and immediately throw it away and immediately wash your hands. Wash your hands frequently. Wipe everything down. Recommend for you to get COVID- 19 testing, may have this done at primary care doctor, health department, [facility] testing center. - Differential Diagnosis Gastroenteritis, gastritis, colitis, pancreatitis, cholecystitis, UTI,viral Critical care attestation.: If time is entered above; I have spent that time in minutes in the direct care of this critically ill patient, excluding procedure time. ED Disposition Clinical Impression: Nausea vomiting and diarrhea Headache Qualifiers: Headache type: unspecified Headache chronicity pattern: acute headache Intractability: not intractable Qualified Code(s): R51.9 - Headache, unspecified UTI (urinary tract infection) Qualifiers: Urinary tract infection type: acute cystitis Hematuria presence: with hematuria Qualified Code(s): N30.01 - Acute cystitis with hematuria Disposition: TO HOME OR SELFCARE Is pt being admited?: No Does the pt Need Aspirin: No Condition: Stable Instructions: Viral Gastroenteritis, Adult, [id number], Urinary Tract Infection, Adult Additional Instructions: Please take medication as prescribed. Increase your fluid intake over the next several days. Eat a bland liquid diet and slowly advance your diet as tolerated. May take Tylenol as needed for fever or body aches.Follow-up with a primary care doctor for reexamination. Return to emergency room immediately for any new or worsening symptoms including but not limited to difficulty br eathing, shortness of breath, severe chest pain, unable to tolerate by mouth intake, etc. Please self quarantine for 10 days from the onset of your symptoms. Please do not go out in public. If you are around others at home please wear a mask. If you need to cough or sneeze please do so in a napkin and immediately throw it away and immediately wash your hands. Wash your hands frequently. Wipe everything down. Recommend for you to get COVID-19 testing, may have this done at primary care doctor, health department, [facility] testing center. Prescriptions: Butalb/Acetaminophen/Caffeine [Fioricet 50-300-40 mg CAP] 1 cap PO Q8HR PRN #10 cap PRN Reason: headache cephALEXin [Keflex] 500 mg PO BID 7 Days #14 cap Ondansetron [Zofran Odt] 4 mg PO Q8HR PRN #10 tab.rapdis PRN Reason: Nausea And Vomiting Referrals: ROSALIND LOUIS MD [Primary Care Provider] - 2-3 Days Forms: Work/School Release Form(ED) Time of Disposition: 17:37 Print Language: BELARUSIAN
[2020-08-30 17:29] VITALS: BP 125/89
== END 2020-08-30 18:14 | disposition home or self-care (01) ==
LOC: ED 10:24
DX: N39.0 Urinary tract infection, site not specified (principal); R11.2 Nausea with vomiting, unspecified; R51.9 Headache, unspecified; R19.7 Diarrhea, unspecified; Z87.891 Personal history of nicotine dependence; Z79.899 Other long term (current) drug therapy; Z98.890 Other specified postprocedural states
CPT/HCPCS: 36415; 80053; 81001; 83690; 84703; 85025; 87086; Q0162